=== PATIENT | female | born 1965 | race Two or more races ===

== ENCOUNTER 2021-09-26 17:28 | Emergency (ER) | payer MEDICAID, OTHER ==
[~2021-09-26] VITALS: Ht 154.9 cm; Wt 93.0 kg
[2021-09-26 21:09] LABS: Albumin 3.6 g/dL (3.4-5.0)
[2021-09-26 21:11] LABS: Basophils # (auto) 0.1 10 ^3/uL (0-0.2); Eosinophils # (auto) 0.3 10 ^3/uL (0-0.8); Eosinophils % (auto) 4.2 % (0.0-7.0); Hematocrit 39.2 % (36.0-46.0); Hemoglobin 13.8 g/dL (12.2-16.2); Lymphocytes # (auto) 3.9 10 ^3/uL (0.4-5.4); Lymphocytes % (auto) 60.6 % (10.0-50.0); Mean Corpuscular Hemoglobin 31.9 pg (28.0-32.0); Mean Corpuscular Hgb Conc. 35.1 g/dL (32.0-36.0); Mean Corpuscular Volume 90.8 fL (80.0-100.0); Monocytes # (auto) 0.4 10 ^3/uL (0-1.3); Monocytes % (auto) 6.3 % (0.0-12.0); Neutrophils # (auto) 1.8 10 ^3/uL (1.6-8.6); Neutrophils % (auto) 27.9 % (37.0-80.0); Red Blood Cells 4.32 10^6/uL (4.0-5.20); Red Cell Distribution Width 13.3 % (11.8-14.3); White Blood Cell 6.4 10^3/uL (4.4-10.8)
[2021-09-26 21:12] LABS: BUN/Creatinine Ratio 16.7; Bilirubin, Total 0.6 mg/dL (0.2-1.0)
[2021-09-27 03:01] VITALS: BP 116/72
== END 2021-09-27 02:41 | disposition home or self-care (01) ==
LOC: ER 17:28
DX: R05.9 Cough, unspecified (principal); R06.00 Dyspnea, unspecified; R53.1 Weakness; J06.9 Acute upper respiratory infection, unspecified; J45.909 Unspecified asthma, uncomplicated; Z20.822 Contact with and (suspected) exposure to COVID-19
CPT/HCPCS: 36415; 36600; 71045; 80053; 82805; 83880; 84484; 85025; 85379; 93005

== ENCOUNTER 2022-02-01 17:36 | Emergency (ER) | payer MEDICAID ==
[~2022-02-01] VITALS: Ht 157.5 cm; Wt 97.2 kg
[2022-02-01 17:43] VITALS: BP 137/79
[2022-02-01] MEDS ORDERED: KETOROLAC TROMETH 60MG/2ML VIAL IM ONE (21:00)
== END 2022-02-01 21:21 | disposition home or self-care (01) ==
LOC: ER 17:41
DX: S46.912A Strain of unspecified muscle, fascia and tendon at shoulder and upper arm level, left arm, initial encounter (principal); J45.909 Unspecified asthma, uncomplicated; E11.9 Type 2 diabetes mellitus without complications; R94.31 Abnormal electrocardiogram [ECG] [EKG]; E78.5 Hyperlipidemia, unspecified; X58.XXXA Exposure to other specified factors, initial encounter; Y93.89 Activity, other specified; Y92.89 Other specified places as the place of occurrence of the external cause; Y99.8 Other external cause status
CPT/HCPCS: 73030; 93005; 96372; 99283; J1885

== ENCOUNTER 2023-05-19 17:29 | Inpatient (IN) | payer MEDICAID ==
[~2023-05-19] VITALS: Ht 154.9 cm; Wt 89.5 kg
[2023-05-19] MEDS ORDERED: MORPHINE SULFATE 4 MG/ML SYR/VIAL IV ONE (18:15)
[2023-05-19] MEDS ORDERED: PANTOPRAZOLE 40 MG/10 ML VIAL INJ IV ONE (18:15)
[2023-05-19] MEDS ORDERED: ONDANSETRON HCL 4 MG/2 ML VIAL IV ONE (18:15)
[2023-05-19] MEDS ORDERED: SODIUM CHLORIDE 0.9% 1,000 ML IVB ONE (18:15)
[2023-05-19 18:43] LABS: Hematocrit 41.2 % (36.0-46.0); Hemoglobin 14.1 g/dL (12.2-16.2); Mean Corpuscular Hemoglobin 31.6 pg (28.0-32.0); Mean Corpuscular Hgb Conc. 34.3 g/dL (32.0-36.0); Mean Corpuscular Volume 92.3 fL (80.0-100.0); Red Blood Cells 4.46 10^6/uL (4.0-5.20); Red Cell Distribution Width 12.9 % (11.8-14.3); White Blood Cell 6.9 10^3/uL (4.4-10.8)
[2023-05-19 18:48] LABS: Band Neutrophils % (manual) 0; Basophils % (manual) 0 (0.0-2.0); Blast Cells 0; Metamyelocytes % 0; Myelocytes % 0; Promyelocytes % 0; Reactive Lymphocytes 0
[2023-05-19 19:01] LABS: Alanine Aminotransferase 36 U/L (7-40); Albumin 4.4 g/dL (3.2-4.8); Alkaline Phosphatase 81 U/L (46-116); Anion Gap 6 (5-15); Aspartate Aminotransferase 29 U/L (13-40); Bilirubin, Total 1.2 mg/dL (0.2-1.0); Blood Urea Nitrogen 14 mg/dL (9-23); Calcium 9.6 mg/dL (8.5-10.1); Carbon Dioxide 28 mmol/L (20-30); Chloride 105 mmol/L (98-107); Glucose 175 mg/dL (74-106); Potassium 4.4 mmol/L (3.5-5.1); Sodium 139 mmol/L (136-145); Total Protein 7.1 g/dL (5.7-8.2)
[2023-05-19 19:02] LABS: Eosinophils % (manual) 4 (0-7); Lymphocytes % (manual) 65 (10.0-50.0); Magnesium 2.1 mg/dL (1.6-2.6); Monocytes % (manual) 9 (0-12); Platelet Estimate Adequate
[2023-05-19 20:46] LABS: Urine Bacteria FEW /hpf (None Seen); Urine Blood Negative /uL (Negative); Urine Clarity Clear (Clear); Urine Color Colorless (Yellow); Urine Protein, UAD Negative (Negative); Urine Specific Gravity 1.005 (1.001-1.035); Urine Urobilinogen Normal (Negative); Urine WBC <1 /hpf (0 - 5)
[2023-05-19] MEDS ORDERED: ONDANSETRON HCL 4 MG/2 ML VIAL IV PRN (21:15)
[2023-05-19] MEDS ORDERED: DEXTROSE (50%) 50ML SYRG IV PRN (21:15)
[2023-05-19] MEDS ORDERED: cefTRIAXone 1GM/50ML D5W 50 ML IV ONE (21:15)
[2023-05-19] MEDS ORDERED: ACETAMINOPHEN 325 MG TAB PO PRN (21:15)
[2023-05-19 23:44] VITALS: PULSE 59; RESP 20; O2SAT 99
[2023-05-20] MEDS: ACCU-CHEK COMFORT CURVE STRIP VI SCH ×4 (00:22→18:03)
[2023-05-20] MEDS: InsuLIN REG 1unit/0.01ml Soln (100units/ml) SC SCH ×4 (00:27→18:21)
[2023-05-20] MEDS ORDERED: MAALOX PLUS or MAALOX 30 ML PO PRN (03:45)
[2023-05-20 06:14] LABS: Hematocrit 42.2 % (36.0-46.0); Hemoglobin 14.3 g/dL (12.2-16.2); Mean Corpuscular Hemoglobin 31.3 pg (28.0-32.0); Mean Corpuscular Hgb Conc. 33.8 g/dL (32.0-36.0); Mean Corpuscular Volume 92.6 fL (80.0-100.0); Red Blood Cells 4.56 10^6/uL (4.0-5.20); Red Cell Distribution Width 13.2 % (11.8-14.3); White Blood Cell 5.6 10^3/uL (4.4-10.8)
[2023-05-20 06:15] LABS: Basophils % (manual) 0 (0.0-2.0); Blast Cells 0; Metamyelocytes % 0; Myelocytes % 0; Promyelocytes % 0
[2023-05-20 06:24] LABS: Alanine Aminotransferase 33 U/L (7-40); Albumin 4.4 g/dL (3.2-4.8); Alkaline Phosphatase 73 U/L (46-116); Anion Gap 5 (5-15); Aspartate Aminotransferase 22 U/L (13-40); BUN/Creatinine Ratio 9.6 (10.0-20.0); Bilirubin, Total 1.7 mg/dL (0.2-1.0); Blood Urea Nitrogen 7 mg/dL (9-23); Calcium 9.1 mg/dL (8.7-10.4); Carbon Dioxide 28 mmol/L (20-30); Chloride 106 mmol/L (98-107); Glucose 152 mg/dL (74-106); Potassium 3.9 mmol/L (3.5-5.1); Sodium 139 mmol/L (136-145); Total Protein 7.4 g/dL (5.7-8.2)
[2023-05-20 08:42] LABS: Band Neutrophils % (manual) 1; Eosinophils % (manual) 5 (0-7); Lymphocytes % (manual) 62 (10.0-50.0); Monocytes % (manual) 6 (0-12); Reactive Lymphocytes 4
[2023-05-20 08:43] LABS: Platelet Estimate Adequate; RBC Morphology Normal
[2023-05-20] MEDS: HYDROcodone-ACET 5/325MG TAB PO PRN ×2 (09:54→15:55)
[2023-05-20] MEDS: cefTRIAXone 1GM/50ML D5W 50 ML IV SCH (09:55)
[2023-05-20 14:30] VITALS: BP 144/63; PULSE 52; RESP 16; O2SAT 98
[2023-05-20 14:39] LABS: INR 1.05 (0.9-1.15)
[2023-05-20] MEDS ORDERED: METF-929 PO (15:42)
[2023-05-20] MEDS ORDERED: ATO40T PO (15:42)
[2023-05-20 17:00] VITALS: BP 124/76; PULSE 49; RESP 16; TEMP 97.5; O2SAT 98
[2023-05-20] MEDS ORDERED: ROSU40TA81 PO (18:02)
[2023-05-20] MEDS ORDERED: BACL10TA PO (18:02)
[2023-05-20] MEDS ORDERED: INSU1INJ19 SC (18:02)
[2023-05-20] MEDS ORDERED: ERTU15TA PO (18:02)
[2023-05-20] MEDS ORDERED: GABA-1250 PO (18:02)
[2023-05-20 19:05] LABS: Hepatitis B Surface Antigen Negative (Negative)
[2023-05-20 19:26] LABS: Hepatitis C Antibody Negative (Negative)
[2023-05-20 22:00] VITALS: BP 100/39; PULSE 56; RESP 18; TEMP 97.7; O2SAT 94
[2023-05-20] MEDS: PANTOPRAZOLE 40 MG TAB PO SCH (22:24)
[2023-05-21] VITALS (8 sets, daily range): BP systolic 100–115; BP diastolic 61–68; PULSE 55–70; RESP 13–20; TEMP 97.8–98.4; O2SAT 93–98
[2023-05-21] MEDS: ACCU-CHEK COMFORT CURVE STRIP VI SCH ×5 (05:47→23:56)
[2023-05-21] MEDS: InsuLIN REG 1unit/0.01ml Soln (100units/ml) SC SCH ×4 (05:53→17:35)
[2023-05-21] MEDS ORDERED: SODIUM CHLORIDE LOCK 10 ML ONE (09:01)
[2023-05-21] MEDS ORDERED: LIDOCAINE VISCOUS 2% 15ML UD ONE (09:01)
[2023-05-21] MEDS ORDERED: MIDAZOLAM HCL 5 MG/ML-1ML VIAL ONE (09:02)
[2023-05-21] MEDS ORDERED: diphenhdrAMINE HCL 50 MG/1 ML VL ONE (09:02)
[2023-05-21] MEDS ORDERED: fentaNYL CITRATE 100 MCG/2 ML VL ONE (09:03)
[2023-05-21] MEDS: cefTRIAXone 1GM/50ML D5W 50 ML IV SCH (09:33)
[2023-05-21] MEDS: PANTOPRAZOLE 40 MG TAB PO SCH ×2 (09:33→21:59)
[2023-05-21] MEDS: HYDROcodone-ACET 5/325MG TAB PO PRN (21:59)
[2023-05-22] MEDS: InsuLIN REG 1unit/0.01ml Soln (100units/ml) SC SCH ×3 (00:05→11:53)
[2023-05-22 05:00] VITALS: BP 89/59; PULSE 67; RESP 17; TEMP 97.7; O2SAT 96
[2023-05-22] MEDS: ACCU-CHEK COMFORT CURVE STRIP VI SCH ×2 (05:40→11:52)
[2023-05-22 06:12] LABS: Hematocrit 41.3 % (36.0-46.0); Hemoglobin 14.3 g/dL (12.2-16.2); Mean Corpuscular Hemoglobin 31.9 pg (28.0-32.0); Mean Corpuscular Hgb Conc. 34.6 g/dL (32.0-36.0); Mean Corpuscular Volume 92.3 fL (80.0-100.0); Red Blood Cells 4.48 10^6/uL (4.0-5.20); Red Cell Distribution Width 13.1 % (11.8-14.3); White Blood Cell 5.7 10^3/uL (4.4-10.8)
[2023-05-22 06:17] LABS: Anion Gap 6 (5-15); Calcium 9.1 mg/dL (8.7-10.4); Carbon Dioxide 26 mmol/L (20-30); Chloride 107 mmol/L (98-107); Potassium 3.7 mmol/L (3.5-5.1); Sodium 139 mmol/L (136-145)
[2023-05-22 06:23] LABS: BUN/Creatinine Ratio 11.5 (10.0-20.0); Blood Urea Nitrogen 9 mg/dL (9-23); Glucose 151 mg/dL (74-106)
[2023-05-22 06:25] LABS: Basophils % (manual) 0 (0.0-2.0); Blast Cells 0; Promyelocytes % 0; Reactive Lymphocytes 0
[2023-05-22 08:20] LABS: Band Neutrophils % (manual) 1; Eosinophils % (manual) 5 (0-7); Lymphocytes % (manual) 27 (10.0-50.0); Metamyelocytes % 2; Monocytes % (manual) 11 (0-12); Myelocytes % 15
[2023-05-22 08:21] LABS: Platelet Estimate Adequate
[2023-05-22 08:51] VITALS: BP 106/75; PULSE 67; RESP 20; TEMP 98.1; O2SAT 97
[2023-05-22] MEDS: PANTOPRAZOLE 40 MG TAB PO SCH (09:44)
[2023-05-22] MEDS: cefTRIAXone 1GM/50ML D5W 50 ML IV SCH (09:45)
[2023-05-22 13:05] VITALS: BP 112/77; PULSE 67; RESP 19; TEMP 98.3; O2SAT 94
[2023-05-22 13:09] VITALS: BP 112/77; PULSE 67; RESP 19; TEMP 98.3; O2SAT 94
[2023-05-22 14:08] VITALS: BP 112/77; PULSE 67; RESP 19; TEMP 98.3
[2023-05-22] MEDS ORDERED: PANT40TA2 PO (16:49)
[2023-05-22] MEDS ORDERED: SUCR1TAB22 PO (16:49)
== END 2023-05-22 15:40 | disposition home or self-care (01) | DRG 241 ==
LOC: ER 17:29 → OVERFLOW 21:13 → EAST 05-20 14:31
PROVIDERS: ADMIT Nurse Practitioner; ATTEND Nurse Practitioner Acute Care
PROC: 0DB68ZX Excision of Stomach, Via Natural or Artificial Opening Endoscopic, Diagnostic (ICD-10-PCS; 2023-05-21)
PROC: 0DB98ZX Excision of Duodenum, Via Natural or Artificial Opening Endoscopic, Diagnostic (ICD-10-PCS; principal; 2023-05-21 13:50)
DX: K29.70 Gastritis, unspecified, without bleeding (principal); K26.9 Duodenal ulcer, unspecified as acute or chronic, without hemorrhage or perforation; K22.10 Ulcer of esophagus without bleeding; K80.20 Calculus of gallbladder without cholecystitis without obstruction; E11.9 Type 2 diabetes mellitus without complications; E66.9 Obesity, unspecified; I10 Essential (primary) hypertension; J45.909 Unspecified asthma, uncomplicated; K21.9 Gastro-esophageal reflux disease without esophagitis; E78.5 Hyperlipidemia, unspecified; K44.9 Diaphragmatic hernia without obstruction or gangrene; K29.80 Duodenitis without bleeding; Z83.3 Family history of diabetes mellitus; Z68.37 Body mass index [BMI] 37.0-37.9, adult
CPT/HCPCS: 36415; 76705; 78226; 80048; 80053; 81001; 82962; 83690; 83735; 85007; 85027; 85610; 86803; 87081; 87340; C9113; G0378; J1815; J2250; J2405

== ENCOUNTER 2023-05-29 16:50 | Emergency (ER) | payer MEDICAID ==
[~2023-05-29] VITALS: Ht 160 cm; Wt 90.0 kg
[~2023-05-29 16:50] MED LIST: BACL10TA PO; ERTU15TA PO; GABA-1250 PO; INSU1INJ19 SC; METF-929 PO; PANT40TA2 PO; ROSU40TA81 PO; SUCR1TAB22 PO
[2023-05-29 18:46] LABS: Basophils # (auto) 0 10 ^3/uL (0-0.2); Basophils % (auto) 0.7 % (0.0-2.0); Eosinophils # (auto) 0.2 10 ^3/uL (0-0.8); Eosinophils % (auto) 3.5 % (0.0-7.0); Hematocrit 40.5 % (36.0-46.0); Hemoglobin 13.6 g/dL (12.2-16.2); Lymphocytes # (auto) 3.3 10 ^3/uL (0.4-5.4); Lymphocytes % (auto) 53.3 % (10.0-50.0); Mean Corpuscular Hgb Conc. 33.6 g/dL (32.0-36.0); Mean Corpuscular Volume 92.1 fL (80.0-100.0); Monocytes # (auto) 0.3 10 ^3/uL (0-1.3); Monocytes % (auto) 5.1 % (0.0-12.0); Neutrophils # (auto) 2.3 10 ^3/uL (1.6-8.6); Neutrophils % (auto) 37.4 % (37.0-80.0); Nucleated Red Blood Cells % 0.1 %; Red Cell Distribution Width 13.2 % (11.8-14.3); White Blood Cell 6.1 10^3/uL (4.4-10.8)
[2023-05-29 19:01] LABS: Alanine Aminotransferase 34 U/L (7-40); Albumin 4.2 g/dL (3.2-4.8); Alkaline Phosphatase 76 U/L (46-116); Anion Gap 8 (5-15); Aspartate Aminotransferase 21 U/L (13-40); BUN/Creatinine Ratio 14.4 (10.0-20.0); Blood Urea Nitrogen 14 mg/dL (9-23); Calcium 9.2 mg/dL (8.7-10.4); Carbon Dioxide 25 mmol/L (20-30); Chloride 106 mmol/L (98-107); Glucose 169 mg/dL (74-106); Sodium 139 mmol/L (136-145); Total Protein 6.9 g/dL (5.7-8.2)
[2023-05-29 19:04] LABS: Urine Bacteria NONE SEEN /hpf (None Seen); Urine Blood Negative /uL (Negative); Urine Clarity Clear (Clear); Urine Color STRAW (Yellow); Urine Protein, UAD Negative (Negative); Urine Specific Gravity 1.011 (1.001-1.035); Urine Urobilinogen Normal (Negative); Urine WBC 1 /hpf (0 - 5); Urine pH 5.5 (5.0-8.0)
[2023-05-29] MEDS ORDERED: KETOROLAC TROMETH 30 MG/ML 1ML VIAL IM ONE (21:15)
[2023-05-30] MEDS ORDERED: CIPR-173 PO (03:01)
[2023-05-30] MEDS ORDERED: MET500T PO (03:01)
[2023-05-30] MEDS ORDERED: metroNIDAZOLE 500 MG TAB PO ONE (03:15)
[2023-05-30] MEDS ORDERED: CIPROFLOXACIN HCL 500 MG TAB PO ONE (03:15)
[2023-05-30 03:59] VITALS: BP 117/73; PULSE 65; RESP 16; TEMP 97.8; O2SAT 98
== END 2023-05-30 04:03 | disposition home or self-care (01) ==
LOC: ER 16:50
DX: K57.32 Diverticulitis of large intestine without perforation or abscess without bleeding (principal); I10 Essential (primary) hypertension; E11.9 Type 2 diabetes mellitus without complications; E78.5 Hyperlipidemia, unspecified; J45.909 Unspecified asthma, uncomplicated; Z98.890 Other specified postprocedural states; Z79.899 Other long term (current) drug therapy
CPT/HCPCS: 36415; 74176; 80053; 81001; 82270; 85025; 96372; 99285; J1885

== ENCOUNTER 2023-10-23 22:56 | Emergency (ER) | payer MEDICAID ==
[~2023-10-23] VITALS: Ht 154.9 cm; Wt 89.5 kg
[~2023-10-23 22:56] MED LIST changes: +CIPR-173 PO; +MET500T PO; -SUCR1TAB22 PO; +SUCR1TAB31 PO
[2023-10-23 23:20] LABS: Hematocrit 39.6 % (36.0-46.0); Hemoglobin 13.7 g/dL (12.2-16.2); Mean Corpuscular Hemoglobin 31.7 pg (28.0-32.0); Mean Corpuscular Hgb Conc. 34.6 g/dL (32.0-36.0); Mean Corpuscular Volume 91.7 fL (80.0-100.0); Red Blood Cells 4.31 10^6/uL (4.0-5.20); Red Cell Distribution Width 13.8 % (11.8-14.3); White Blood Cell 5.7 10^3/uL (4.4-10.8)
[2023-10-23 23:23] LABS: Band Neutrophils % (manual) 0; Basophils % (manual) 0 (0.0-2.0); Blast Cells 0; Metamyelocytes % 0; Myelocytes % 0; Promyelocytes % 0
[2023-10-23 23:27] VITALS: O2SAT 96
[2023-10-23 23:32] VITALS: TEMP 98.8
[2023-10-23 23:33] LABS: Urine Bacteria None Seen /hpf (None Seen)
[2023-10-23 23:39] LABS: Alanine Aminotransferase 29 U/L (7-40); Albumin 3.8 g/dL (3.2-4.8); Alkaline Phosphatase 80 U/L (46-116); Anion Gap 8 (5-15); Aspartate Aminotransferase 21 U/L (13-40); BUN/Creatinine Ratio 11.8 (10.0-20.0); Blood Urea Nitrogen 10 mg/dL (9-23); Calcium 9.7 mg/dL (8.7-10.4); Carbon Dioxide 25 mmol/L (20-30); Chloride 107 mmol/L (98-107); Glucose 247 mg/dL (74-106); Potassium 3.6 mmol/L (3.5-5.1); Sodium 140 mmol/L (136-145)
[2023-10-23 23:40] LABS: Bilirubin, Total 1.3 mg/dL (0.2-1.0); Total Protein 6.8 g/dL (5.7-8.2)
[2023-10-23 23:43] LABS: Urine Blood Negative /uL (Negative); Urine Clarity Clear (Clear); Urine Color Light-Yellow (Yellow); Urine Protein, UAD Negative (Negative); Urine Specific Gravity 1.017 (1.001-1.035); Urine Urobilinogen 2 mg/dL (Negative); Urine WBC <1 /hpf (0 - 5); Urine pH 6.5 (5.0-9.0)
[2023-10-23 23:48] LABS: Eosinophils % (manual) 4 (0-7); Lymphocytes % (manual) 63 (10.0-50.0); Monocytes % (manual) 1 (0-12); Platelet Estimate Adequate; RBC Morphology Normal; Reactive Lymphocytes 11
[2023-10-24 01:19] VITALS: BP 108/60; PULSE 60; RESP 19; O2SAT 95
== END 2023-10-23 23:53 | disposition home or self-care (01) ==
LOC: ER 22:56
DX: R07.89 Other chest pain (principal); J45.909 Unspecified asthma, uncomplicated; E11.9 Type 2 diabetes mellitus without complications; E78.5 Hyperlipidemia, unspecified; Z79.899 Other long term (current) drug therapy
CPT/HCPCS: 36415; 71045; 80053; 81001; 84484; 85007; 85027; 93005